=== PATIENT | female | born 1990 | race Caucasian/White ===

== ENCOUNTER 2016-12-31 15:27 | Emergency (ER) | payer OTHER, MEDICAID ==
[2016-12-31 15:48] VITALS: RESP 16
[2016-12-31] MEDS ORDERED: ACETAMINOPHEN 325 MG TAB PO ONE (15:51)
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
[2016-12-31 17:08] VITALS: BP 110/72; PULSE 70; TEMP 98.1; O2SAT 98
== END 2016-12-31 17:03 | disposition home or self-care (01) ==
LOC: CED 15:27
DX: S16.1XXA Strain of muscle, fascia and tendon at neck level, initial encounter (principal); V43.02XA Car driver injured in collision with other type car in nontraffic accident, initial encounter
CPT/HCPCS: 70450-PO; 72125-PO; 82947-PO; 99215-PO; G0463-PO; L0172